=== PATIENT | male | born 1990 | race African-American/Black ===

== ENCOUNTER 2017-10-08 02:35 | Emergency (ER) | payer MEDICAID, OTHER ==
[~2017-10-08] VITALS: Ht 188 cm; Wt 110.0 kg
[2017-10-08 02:49] VITALS: BP 138/78; PULSE 69; RESP 16; TEMP 97.7; O2SAT 99
[2017-10-08] MEDS ORDERED: IBUP1TAB7 PO (03:19)
[2017-10-08] MEDS ORDERED: AMOX875T PO (03:19)
--- NOTE | 2017-10-08 03:19 | PD ---
HPI Chief Complaint: Oral / Dental Pain or Problem Time Seen by Provider: 03:03 Travel History International Travel<30 days: No Contact w/Intl Traveler<30days: No Traveled to known affect area: No History of Present Illness HPI Patient is a 26-year-old male presenting to emerge from for evaluation of a toothache. Patient states it started 3 months ago however it normally would subside if he took ibuprofen or Aleve. He states for the last week it has gotten worse and an additional piece of his tooth is chipped off. He states is worse if he tries to bite down. He reports the pain is a 9 out of 10, he states that shooting and throbbing. He denies any fever, chills, nausea, vomiting, headache. Symptom onset was gradual, symptoms are chronic and moderate in nature. [facility] Past Medical History Medical History: Denies Significant Hx Diminished Hearing: No Tetanus Vaccination: Unknown Influenza Vaccination: No Past Surgical History Surgical History: No Previous Surgery Social History Alcohol Use: No Tobacco Use: Yes Substance Use: No Allergies-Medications (Allergen,Severity, Reaction): Coded Allergies: No Known Allergies (Unverified , 10/08/17) Reported Meds & Prescriptions Reported Meds & Active Scripts Active Review of Systems Except as stated in HPI: all other systems reviewed are Neg HENT: Positive: Dental Difficulties Physical Exam Narrative GENERAL: Well-developed, well-nourished, alert -[place] male. Presenting in no acute distress. SKIN: Warm and dry. HEAD: Normocephalic. EYES: No scleral icterus. No injection or drainage. MOUTH: Mucous membranes moist, no lesions, tongue and gums appear normal. Right upper second molar is chipped. NECK: Supple, trachea midline. No JVD or lymphadenopathy. CARDIOVASCULAR: Regular rate and rhythm without murmurs, gallops, or rubs. RESPIRATORY: Breath sounds equal bilaterally. No accessory muscle use. GASTROINTESTINAL: Abdomen soft, non-tender, nondistended. MUSCULOSKELETAL: No cyanosis, or edema. BACK: Nontender without obvious deformity. No CVA tenderness. Data Data Last Documented VS Vital Signs Date Time Temp Pulse Resp B/P (MAP) Pulse Ox O2 Delivery O2 Flow Rate FiO2 10/08/17 02:49 97.7 69 16 138/78 (98) 99 MDM Medical Decision Making Medical Screen Exam Complete: Yes Emergency Medical Condition: Yes Interpretation(s) Vital Signs Date Time Temp Pulse Resp B/P (MAP) Pulse Ox O2 Delivery O2 Flow Rate FiO2 10/08/17 02:49 97.7 69 16 138/78 (98) 99 Differential Diagnosis Dental abscess versus dental caries versus dentalgia versus other Narrative Course Patient is well-appearing 26-year-old male presenting to emerge from for evaluation of dental pain. Pain is likely related to the nerve of the tooth being exposed. This was explained to patient. Symptoms are chronic in nature, he was advised that he will need to see a dentist for evaluation and management of this chronic issue. He will be provided with a prescription for an antibiotic and some ibuprofen. He was encouraged to obtain [id number] Orajel or similar agent use as directed. Patient verbalized understanding of these instructions. Patient stable for discharge. Diagnosis Primary Impression: Broken tooth Qualified Codes: S02.5XXA - Fracture of tooth (traumatic), initial encounter for closed fracture Additional Impression: Tooth ache Referrals: Dentist 3 days Patient Instructions: Cavity Preventive (For the teeth or gums), General Instructions, Toothache (ED) Additional Instructions: Follow-up with a dentist in 3-7 days Take medications as directed Return to emergency department for any new or worsening symptoms Med/Other Pt SpecificInfo: Prescription(s) given Scripts Ibuprofen (Ibuprofen) 800 Mg Tab 800 MG PO Q6HR Y for PAIN, #40 TAB 0 Refills Prov: Jacqui Alcantar 10/08/17 Amoxicillin (Amoxicillin) 875 Mg Tab 875 MG PO BID for Infection for 10 Days, #20 TAB 0 Refills Prov: Jacqui Alcantar 10/08/17 Disposition: 01 DISCHARGE HOME Condition: Stable Jacqui Alcantar October 08, 2017 03:19
== END 2017-10-08 03:43 | disposition home or self-care (01) ==
LOC: NEPD 02:35
DX: S02.5XXA Fracture of tooth (traumatic), initial encounter for closed fracture (principal); X58.XXXA Exposure to other specified factors, initial encounter; Z72.0 Tobacco use
CPT/HCPCS: 99283